=== PATIENT | female | born 1960 | race Two or more races ===

== ENCOUNTER → 2021-12-14 | Outpatient (CLI) | payer MEDICARE | LOC: M PLAIMG 11:01 | PROVIDERS: ATTEND Family Medicine | DX: M19.012 Primary osteoarthritis, left shoulder (principal) ==

== ENCOUNTER → 2021-12-31 | Outpatient (CLI) | payer MEDICARE | LOC: M WHC 13:12 | PROVIDERS: ATTEND Family Medicine | DX: E04.1 Nontoxic single thyroid nodule (principal) ==

== ENCOUNTER → 2021-12-31 | Outpatient (CLI) | payer MEDICARE ==
[2021-12-31 16:21] LABS: FREE THYROXINE INDEX 2.6 % (1.3-4.8); THYROID STIMULATING HORMONE 0.764 uIU/ML (0.358-3.740); THYROXINE (T4) 8.1 UG/DL (4.5-12.0)
== END ==
LOC: M PLALAB 13:58
PROVIDERS: ATTEND Family Medicine
DX: E04.1 Nontoxic single thyroid nodule (principal)

== ENCOUNTER → 2022-01-03 | Outpatient (CLI) | payer MEDICARE | LOC: M WHC 12:36 → EDUNIT# 01-28 11:00 | PROVIDERS: ATTEND Family Medicine | DX: N64.4 Mastodynia (principal) | CPT/HCPCS: 77066; G0279 ==

== ENCOUNTER → 2022-01-04 | Outpatient (CLI) | payer MEDICARE | LOC: M SOG 08:59 | PROVIDERS: ATTEND Orthopaedic Surgery | DX: M17.11 Unilateral primary osteoarthritis, right knee (principal) ==

== ENCOUNTER → 2022-01-15 | Outpatient (CLI) | payer MEDICARE ==
[~2022-01-15] MED LIST: **SFHN** LIDOCAINE 1% MDV 20ML VIAL ONE; **SFHN** SODIUM BICARBONATE 8.4% 10MEQ 10ML VIAL ONE; CALC500C16 PO; CELE100C PO; CYCL-707 PO; DULO1CAP6 PO; OMEP40CA4 PO
[2022-01-15 11:23] VITALS: BP 138/84
== END ==
LOC: M WHCPRO 10:03
PROVIDERS: ATTEND Family Medicine
DX: E04.1 Nontoxic single thyroid nodule (principal)

== ENCOUNTER → 2022-02-28 | Outpatient (CLI) | payer MEDICARE ==
[~2022-02-28] MED LIST changes: -**SFHN** LIDOCAINE 1% MDV 20ML VIAL ONE; -**SFHN** SODIUM BICARBONATE 8.4% 10MEQ 10ML VIAL ONE
== END ==
LOC: M SOG 15:45
PROVIDERS: ATTEND Orthopaedic Surgery
DX: M25.511 Pain in right shoulder (principal)

== ENCOUNTER → 2022-06-06 | Outpatient (CLI) | payer MEDICARE | LOC: M PLAIMG 15:01 | PROVIDERS: ATTEND Orthopaedic Surgery | DX: M75.42 Impingement syndrome of left shoulder (principal); M67.814 Other specified disorders of tendon, left shoulder ==

== ENCOUNTER → 2022-07-11 | Outpatient (CLI) | payer MEDICARE | LOC: M WHC 15:36 | PROVIDERS: ATTEND Family Medicine | DX: M81.0 Age-related osteoporosis without current pathological fracture (principal) ==

== ENCOUNTER → 2022-07-11 | Outpatient (CLI) | payer MEDICARE ==
[2022-07-11 17:30] LABS: EOS # 0.2 10^3/uL (0.0-0.5); EOS % 5.6 % (0.0-3.0); HEMATOCRIT 34.6 % (36.0-47.0); HEMOGLOBIN 11.1 g/dl (12.0-15.5); LYMPH # 1.8 10^3/uL (1.5-5.0); LYMPH % 44.2 % (24.0-44.0); MEAN CORPUSCULAR HEMOGLOBIN 30.1 pg (27.0-33.0); MEAN CORPUSCULAR HGB CONC 32.1 g/dl (32.0-36.5); MEAN CORPUSCULAR VOLUME 93.8 fl (80.0-96.0); MONO # 0.4 10^3/uL (0.0-0.8); MONO % 10.1 % (2.0-8.0); NEUTROPHILS # 1.7 10^3/uL (1.5-8.5); NEUTROPHILS % 40.1 % (36.0-66.0); PLATELET COUNT, AUTOMATED 464 10^3/uL (150-450); RED BLOOD COUNT 3.69 10^6/uL (4.00-5.40); WHITE BLOOD COUNT 4.1 10^3/uL (4.0-10.0)
== END ==
LOC: M PLALAB 16:12
PROVIDERS: ATTEND Family Medicine
DX: E66.3 Overweight (principal)

== ENCOUNTER → 2022-07-16 | Outpatient (CLI) | payer MEDICARE | LOC: M SOG 08:51 | PROVIDERS: ATTEND Orthopaedic Surgery | DX: M25.561 Pain in right knee (principal); M25.562 Pain in left knee; Z53.9 Procedure and treatment not carried out, unspecified reason ==

== ENCOUNTER → 2022-07-24 | Outpatient (CLI) | payer MEDICARE ==
[2022-07-24 17:45] LABS: BASO % 0.2 % (0.0-1.0); EOS # 0.2 10^3/uL (0.0-0.5); HEMATOCRIT 32.2 % (36.0-47.0); HEMOGLOBIN 10.3 g/dl (12.0-15.5); LYMPH # 1.9 10^3/uL (1.5-5.0); LYMPH % 46.9 % (24.0-44.0); MEAN CORPUSCULAR HEMOGLOBIN 30.3 pg (27.0-33.0); MEAN CORPUSCULAR VOLUME 94.7 fl (80.0-96.0); MONO # 0.3 10^3/uL (0.0-0.8); MONO % 7.7 % (2.0-8.0); NEUTROPHILS # 1.6 10^3/uL (1.5-8.5); PLATELET COUNT, AUTOMATED 424 10^3/uL (150-450)
[2022-07-24 18:07] LABS: ALBUMIN 3.8 G/DL (3.2-5.2); ALKALINE PHOSPHATASE 94 U/L (46-116); ALT/SGPT 16 U/L (7.0-40); AST/SGOT 20 U/L (<34); BILIRUBIN,TOTAL 0.4 MG/DL (0.3-1.2); BLOOD UREA NITROGEN 10 MG/DL (9-23); CALCIUM LEVEL 9.2 MG/DL (8.3-10.6); CARBON DIOXIDE LEVEL 28 MMOL/L (20-31); CHLORIDE LEVEL 98 MMOL/L (98-107); CHOLESTEROL LEVEL 189 MG/DL (<200); CHOLESTEROL RISK RATIO 2.86 (<5); GLOMERULAR FILTRATION RATE > 60.0 (>45); GLUCOSE, FASTING 72 MG/DL (74-106); LDL CHOLESTEROL 109.8 MG/DL (<100); POTASSIUM SERUM 4.3 MMOL/L (3.5-5.1); SODIUM LEVEL 133 MMOL/L (136-145); TOTAL PROTEIN 6.9 G/DL (5.7-8.2); TRIGLYCERIDES LEVEL 66 MG/DL (<150)
[2022-07-24 18:09] LABS: TOTAL 25(OH) VITAMIN D 125.4 NG/ML (20.0-100.0)
== END ==
LOC: M PLALAB 15:38
PROVIDERS: ATTEND Family Medicine
DX: E66.3 Overweight (principal)

== ENCOUNTER → 2022-09-16 | Outpatient (CLI) | payer MEDICARE, SELFPAY | LOC: M PLALAB 16:15 | PROVIDERS: ATTEND Family Medicine | DX: E55.9 Vitamin D deficiency, unspecified (principal); Z53.9 Procedure and treatment not carried out, unspecified reason ==

== ENCOUNTER → 2022-10-02 | Outpatient (CLI) | payer MEDICARE ==
[2022-10-02 18:51] LABS: BLOOD UREA NITROGEN 18 MG/DL (9-23); CALCIUM LEVEL 9.3 MG/DL (8.3-10.6); CARBON DIOXIDE LEVEL 27 MMOL/L (20-31); CHLORIDE LEVEL 101 MMOL/L (98-107); CREATININE FOR GFR 0.87 MG/DL (0.55-1.30); GLOMERULAR FILTRATION RATE > 60.0 (>45); GLUCOSE, FASTING 84 MG/DL (74-106); PHOSPHORUS LEVEL 4.3 MG/DL (2.4-5.1); POTASSIUM SERUM 5.1 MMOL/L (3.5-5.1); PTH INTACT 105.9 PG/ML (18.5-88.0); SODIUM LEVEL 133 MMOL/L (136-145)
[2022-10-02 18:53] LABS: TOTAL 25(OH) VITAMIN D 72.9 NG/ML (20.0-100.0)
== END ==
LOC: M LAB 17:41
PROVIDERS: ATTEND Family Medicine
DX: E55.9 Vitamin D deficiency, unspecified (principal); Z79.899 Other long term (current) drug therapy

== ENCOUNTER → 2022-11-13 | Outpatient (CLI) | payer MEDICARE ==
[2022-11-13 16:46] LABS: BLOOD UREA NITROGEN 5 MG/DL (9-23); CALCIUM LEVEL 9.7 MG/DL (8.3-10.6); CARBON DIOXIDE LEVEL 24 MMOL/L (20-31); CHLORIDE LEVEL 100 MMOL/L (98-107); CREATININE FOR GFR 0.69 MG/DL (0.55-1.30); GLOMERULAR FILTRATION RATE > 60.0 (>45); GLUCOSE, FASTING 77 MG/DL (74-106); POTASSIUM SERUM 4.4 MMOL/L (3.5-5.1); SODIUM LEVEL 134 MMOL/L (136-145)
== END ==
LOC: M LAB 15:18
PROVIDERS: ATTEND Family Medicine
DX: E87.5 Hyperkalemia (principal)

== ENCOUNTER → 2022-11-13 | Outpatient (CLI) | payer MEDICARE ==
[2022-11-13 10:18] LABS: APPEARANCE, URINE CLEAR (CLEAR); BACTERIA, URINE AUTO NEGATIVE (NEGATIVE); BILIRUBIN, URINE AUTO NEGATIVE (NEGATIVE); BLOOD, URINE BLOOD NEGATIVE (NEGATIVE); COLOR, URINE STRAW (YELLOW); GLUCOSE, URINE (UA) AUTO NEGATIVE (NEGATIVE); KETONE, URINE AUTO NEGATIVE (NEGATIVE); LEUKOCYTE ESTERASE, URINE AUTO NEGATIVE (NEGATIVE); MUCUS, URINE SMALL (NEGATIVE); NITRITE, URINE AUTO NEGATIVE (NEGATIVE); PROTEIN, URINE AUTO NEGATIVE (NEGATIVE); RBC, URINE AUTO 0 /HPF (0-3); SPECIFIC GRAVITY URINE AUTO 1.002 (1.002-1.035); SQUAMOUS EPITHELIAL CELL UR AU 0 /HPF (0-6); UROBILINOGEN, URINE AUTO 0.2 mg/dL (0.0-2.0); WBC, URINE AUTO 0 /HPF (0-3)
[2022-11-13 10:31] LABS: SODIUM,RANDOM URINE 42 MMOL/L
[2022-11-13 10:42] LABS: CREATININE,RANDOM URINE 22.9 MG/DL
[2022-11-13 10:52] LABS: BLOOD UREA NITROGEN < 5 MG/DL (9-23); CALCIUM LEVEL 10.2 MG/DL (8.3-10.6); CARBON DIOXIDE LEVEL 25 MMOL/L (20-31); CHLORIDE LEVEL 98 MMOL/L (98-107); CORTISOL AM 12.8 UG/DL (4.3-22.4); CREATININE FOR GFR 0.68 MG/DL (0.55-1.30); FREE T4 0.96 NG/DL (0.89-1.76); GLOMERULAR FILTRATION RATE > 60.0 (>45); GLUCOSE, FASTING 87 MG/DL (74-106); POTASSIUM SERUM 5.9 MMOL/L (3.5-5.1); SODIUM LEVEL 130 MMOL/L (136-145); THYROID STIMULATING HORMONE 1.055 uIU/ML (0.55-4.78)
[2022-11-13 11:18] LABS: OSMOLALITY SERUM 274 MOSM/KG (280-301)
== END ==
LOC: M LAB 11-12 11:25
PROVIDERS: ATTEND Family Medicine
DX: E87.1 Hypo-osmolality and hyponatremia (principal)

== ENCOUNTER → 2023-01-02 | Outpatient (CLI) | payer MEDICARE | LOC: M WHC 14:32 | PROVIDERS: ATTEND Family Medicine | DX: E04.1 Nontoxic single thyroid nodule (principal) ==

== ENCOUNTER → 2023-02-19 | Outpatient (CLI) | payer MEDICARE | LOC: M WHC 13:55 | PROVIDERS: ATTEND Family Medicine | DX: Z12.31 Encounter for screening mammogram for malignant neoplasm of breast (principal) ==

== ENCOUNTER → 2023-09-09 | Outpatient (CLI) | payer MEDICARE ==
[~2023-09-09] MED LIST changes: +PROHANCE 279.3MG/ML 15ML VIAL As Ordered ONE
== END ==
LOC: M RAD 12:41
PROVIDERS: ATTEND Physician Assistant
DX: D18.03 Hemangioma of intra-abdominal structures (principal)
CPT/HCPCS: 74183; A9576